=== PATIENT | female | born 1960 | race African-American/Black ===

== ENCOUNTER 2023-07-06 09:38 | Emergency (ER) | payer MEDICAID ==
[~2023-07-06] VITALS: Ht 175.3 cm; Wt 85.0 kg
[2023-07-06 09:48] VITALS: TEMP 98.3; O2SAT 100
[2023-07-06] MEDS ORDERED: PHEN1CAP86 MT (11:19)
[2023-07-06 11:42] VITALS: BP 110/58; PULSE 82; RESP 15
== END 2023-07-06 11:43 | disposition home or self-care (01) ==
LOC: ER 09:38
DX: J06.9 Acute upper respiratory infection, unspecified (principal); I10 Essential (primary) hypertension; E11.9 Type 2 diabetes mellitus without complications; J45.909 Unspecified asthma, uncomplicated; Z98.890 Other specified postprocedural states
CPT/HCPCS: 71045; 99283